=== PATIENT | female | born 1990 | race African-American/Black ===

== ENCOUNTER 2019-01-05 06:53 | Inpatient (IN) ==
[2019-01-05] MEDS ORDERED: LACTATED RINGERS 250 ML IV ONE (07:11)
[2019-01-05] MEDS ORDERED: ONDANSETRON 4 MG/2 ML VIAL IV PRN ×2 (07:11→10:18)
[2019-01-05] MEDS: LACTATED RINGERS 1,000 ML IV SCH ×2 (07:11→08:48)
[2019-01-05] MEDS ORDERED: CITRIC ACID/SODIUM CITRATE 30 ML UDCUP PO ONE (07:22)
[2019-01-05] MEDS ORDERED: OXYTOCIN/LR 30 UNIT/1,000 ML BAG IV ONE (07:24)
[2019-01-05] MEDS ORDERED: OXYTOCIN 10 UNIT/ML VIAL IM ONE (07:24)
[2019-01-05] MEDS ORDERED: FAMOTIDINE 20 MG/2 ML VIAL IV SCH (07:30)
[2019-01-05 07:43] LABS: Basophils % 0.2 % (0.0-0.8); Eosinophils # 0.1 10*3/uL (0.0-0.87); Eosinophils % 1.1 % (0.00-10.9); Hematocrit 33.8 VOL% (35.7-47.0); Hemoglobin 10.3 GM/DL (12.0-16.0); Immature Granulocytes % 1.4 %; Immature Granulocytes Absolute 0.11 #; Lymphocytes # 1.2 10*3/uL (1.4-4.0); Lymphocytes % 14.1 % (21.3-54.2); Mean Corpuscular HGB Conc 30.5 GM/DL (32-36); Mean Corpuscular Hemoglobin 23 PG (27-34); Mean Corpuscular Volume 76.8 FL (87-102); Mean Platelet Volume 9.8 FL (9.6-12.0); Monocytes # 0.6 10*3/uL (0.11-0.8); Monocytes % 7.7 % (1.7-12.7); Neutrophils # 6.1 10*3/uL (1.4-7.4); Neutrophils % 75.5 % (38.7-73.9); Platelet Count 220 T/CUMM (130-400); Red Cell Distribution Width 14.3 % (9.3-17.3); White Blood Count 8.1 T/CUMM (4-12)
[2019-01-05] MEDS ORDERED: AMPICILLIN INJ 2,000 MG in SODIUM CHLORIDE 0.9% 100 ML IV ONE (07:45)
[2019-01-05 08:06] LABS: Alanine Aminotransferase 18 U/L (13-56); Albumin 2.6 G/DL (3.4-5.0); Alkaline Phosphatase 130 U/L (45-117); Aspartate Amino Transferase 23 U/L (0-37); Bilirubin,Total < 0.39 MG/DL (0.2-1.0); Blood Urea Nitrogen 11 MG/DL (7-18); Calcium 8.5 MG/DL (8.5-10.1); Glucose 73 MG/DL (74-106); Osmolality,Calculated 270.8 MOS/KG (273-304); Sodium 137 MMOL/L (136-145); Total Protein 7.1 G/DL (6.4-8.3)
[2019-01-05 09:26] LABS: HIV Antigen/Antibody Result Nonreactive (Nonreactive); Hepatitis B Surface Ag Quant < 0.10 Index; Hepatitis B Surface Ag Result Negative (Negative)
[2019-01-05 09:56] LABS: Cord Venous Blood HCO3 22.6 MMOL/L; Cord Venous Blood PCO2 36.7 MMHG; Cord Venous Blood PO2 47.4
[2019-01-05 09:59] LABS: Apearance,Urine CLEAR (Clear); Bilirubin,Urine Negative (Negative); Blood, Urine Negative (Negative); Glucose,Urine (UA) Negative (Negative); Ketones,Urine Negative (Negative); Nitrite,Urine Negative (Negative); Protein,Urine Negative; Urine Color Yellow (Yellow); Urine Specific Gravity 1.011 (1.001-1.035); Urine Urobilinogen < 2.0 EU/DL (0.2-1.0)
[2019-01-05] MEDS ORDERED: BUPIVACAINE SPINAL 0.75% 2 ML AMP SPINAL ONE (10:01)
[2019-01-05] MEDS ORDERED: MORPHINE 10 MG/10 ML VIAL ONE (10:02)
[2019-01-05] MEDS ORDERED: ACETAMINOPHEN 1,000 MG/100 ML VIAL IV ONE (10:02)
[2019-01-05] MEDS ORDERED: fentaNYL 100 MCG/2 ML VIAL ONE (10:02)
[2019-01-05] MEDS ORDERED: LACTATED RINGERS 1,000 ML IV ONE (10:03)
[2019-01-05] MEDS ORDERED: IBUPROFEN 800 MG TABLET PO PRN (10:18)
[2019-01-05] MEDS ORDERED: MAGNESIUM HYDROXIDE SUSP 30 ML UDCUP PO PRN (10:18)
[2019-01-05] MEDS ORDERED: ACETAMINOPHEN 325 MG TABLET PO PRN (10:18)
[2019-01-05] MEDS ORDERED: RHO(D) IMMUNE GLOBULIN 300 MCG SYRINGE IM ONE (10:18)
[2019-01-05] MEDS ORDERED: OXYTOCIN/LR 20 UNIT/1,000 ML BAG IV ONE ×2 (10:18→11:21)
[2019-01-05] MEDS ORDERED: ceFAZolin 1,000 MG in SYRINGE 1 EACH IV SCH (10:30)
[2019-01-05] MEDS ORDERED: LACTATED RINGERS 1,000 ML IV SCH (10:30)
[2019-01-05] MEDS: ceFAZolin 1,000 MG in SYRINGE 1 EACH IV SCH (15:55)
[2019-01-05 19:18] LABS: Basophils % 0.3 % (0.0-0.8); Eosinophils # 0.1 10*3/uL (0.0-0.87); Eosinophils % 0.7 % (0.00-10.9); Hematocrit 31.7 VOL% (35.7-47.0); Hemoglobin 9.9 GM/DL (12.0-16.0); Immature Granulocytes Absolute 0.11 #; Lymphocytes # 1.6 10*3/uL (1.4-4.0); Lymphocytes % 13.8 % (21.3-54.2); Mean Corpuscular HGB Conc 31.2 GM/DL (32-36); Mean Corpuscular Hemoglobin 24 PG (27-34); Mean Corpuscular Volume 75.3 FL (87-102); Mean Platelet Volume 10.5 FL (9.6-12.0); Monocytes # 0.9 10*3/uL (0.11-0.8); Monocytes % 7.4 % (1.7-12.7); Neutrophils # 8.9 10*3/uL (1.4-7.4); Neutrophils % 76.8 % (38.7-73.9); Platelet Count 210 T/CUMM (130-400); Red Blood Count 4.21 MC/CUMM (3.8-5.5); Red Cell Distribution Width 14.4 % (9.3-17.3); White Blood Count 11.5 T/CUMM (4-12)
[2019-01-06] MEDS: ceFAZolin 1,000 MG in SYRINGE 1 EACH IV SCH (00:35)
[2019-01-06] MEDS: DOCUSATE SODIUM 100 MG CAPSULE PO SCH ×3 (02:13→22:01)
[2019-01-06 05:57] LABS: Basophils % 0.4 % (0.0-0.8); Eosinophils # 0.1 10*3/uL (0.0-0.87); Eosinophils % 1.3 % (0.00-10.9); Hematocrit 32.3 VOL% (35.7-47.0); Hemoglobin 9.9 GM/DL (12.0-16.0); Immature Granulocytes % 0.8 %; Immature Granulocytes Absolute 0.08 #; Lymphocytes % 10.2 % (21.3-54.2); Mean Corpuscular HGB Conc 30.7 GM/DL (32-36); Mean Corpuscular Hemoglobin 23 PG (27-34); Mean Corpuscular Volume 76.2 FL (87-102); Monocytes # 0.7 10*3/uL (0.11-0.8); Monocytes % 7.3 % (1.7-12.7); Neutrophils # 7.9 10*3/uL (1.4-7.4); Platelet Count 207 T/CUMM (130-400); Red Blood Count 4.24 MC/CUMM (3.8-5.5); Red Cell Distribution Width 14.2 % (9.3-17.3); White Blood Count 9.9 T/CUMM (4-12)
[2019-01-06] MEDS ORDERED: ACETAMINOPHEN 500 MG TABLET PO PRN (08:13)
[2019-01-06] MEDS: MULTIVITAMIN (PRENATAL) TABLET PO SCH (09:04)
[2019-01-06] MEDS: SIMETHICONE CHEW 80 MG TABLET PO PRN ×2 (09:04→22:02)
[2019-01-06] MEDS: METOCLOPRAMIDE 10 MG TABLET PO SCH ×2 (09:05→17:00)
[2019-01-07 07:21] VITALS: BP 105/66
[2019-01-07] MEDS: DOCUSATE SODIUM 100 MG CAPSULE PO SCH (09:40)
[2019-01-07] MEDS: MULTIVITAMIN (PRENATAL) TABLET PO SCH (09:40)
[2019-01-07] MEDS ORDERED: DIPH/TET/ACEL PERT BOOSTER VACCINE 0.5 ML VIAL IM ONE (11:48)
== END 2019-01-07 13:20 | disposition home or self-care (01) | DRG 785 ==
LOC: N.LDOUT 06:53 → N.LD 06:56 → N.OB 14:19
PROVIDERS: ADMIT Obstetrics & Gynecology; ATTEND Obstetrics & Gynecology